=== PATIENT | female | born 1970 | race Caucasian/White ===

== ENCOUNTER 2018-07-17 14:49 | Emergency (ER) | payer OTHER, SELFPAY ==
[2018-07-17 14:56] VITALS: BP 188/115; PULSE 91; RESP 20; TEMP 36.7; O2SAT 100
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
[2018-07-17] MEDS: KETOROLAC 60 MG/2 ML VIAL 30 MG IM (16:00)
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
[2018-07-17 16:29] VITALS: BP 170/98; PULSE 79; RESP 18; O2SAT 100
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
== END 2018-07-17 16:50 | disposition home or self-care (01) ==
PROVIDERS: Emergency Provider Nurse Practitioner Family
DX: S20.219A Contusion of unspecified front wall of thorax, initial encounter (principal); V49.9XXA Car occupant (driver) (passenger) injured in unspecified traffic accident, initial encounter
CPT/HCPCS: 71046; 96372; 99283; J1885